=== PATIENT | female | born 1995 | race Caucasian/White ===

== ENCOUNTER 2022-07-01 14:24 | Emergency (ER) | payer OTHER ==
[2022-07-01] MEDS ORDERED: HYDROCODONE/APAP 7.5/325 MG TAB ONE (15:31)
--- NOTE | 2022-07-01 16:57 | RAD REPORT ---
EXAM DESCRIPTION: RAD - Ankle Right 3 View - 07/01/2022 3:53 pm CLINICAL HISTORY: PAIN COMPARISON: No comparisons TECHNIQUE: Right ankle, 3 views. FINDINGS: No fracture, dislocation or periosteal reaction. No joint effusion seen. No joint space na rrowing. Bilateral tissue swelling along the lateral malleolus. IMPRESSION: No acute osseous abnormality of the right ankle.
--- NOTE | 2022-07-01 17:14 | ER ---
Nurse's Notes [facility] Name: Carmen Hinojosa Age: 27 yrs Sex: Female : 1995 Arrival Date: 07/01/2022 Time: 14:24 Bed 17 Private MD: Diagnosis: Sprain of ankle;Sprain of deltoid ligament of right ankle Presentation: 07/01 14:47 Chief complaint: Patient states: Rolled R ankle on Saturday. Still swollen and painful. ll1 Had x-ray at urgent care, no break found. Coronavirus screen: Vaccine status: Patient reports being unvaccinated. Client denies travel out of the [place] in the last 14 days. At this time, the client does not indicate any symptoms associated with coronavirus-19. Ebola Screen: Patient denies travel to an Ebola-affected area in the 21 days before illness onset. Initial Sepsis Screen: Does the patient meet any 2 criteria? No. Patient's initial sepsis screen is negative. Does the patient have a suspected source of infection? Yes: Bone or joint infection. Risk Assessment: Do you want to hurt yourself or someone else? Patient reports no desire to harm self or others. Onset of symptoms was June 29, 2022. 14:47 Method Of Arrival: Wheelchair ll1 14:47 Acuity: MANUEL 4 ll1 Historical: - Allergies: 14:46 Latex, Natural Rubber; ll1 - PMHx: 14:46 None; ll1 - PSHx: 14:46 None; ll1 - Immunization history:: Client reports having NOT received the Covid vaccine. - Social history:: Smoking status: Patient denies any tobacco usage or history of. Vital Signs: 14:47 BP 141 / 99; Pulse 117; Resp 17; Temp 99.6; Pulse Ox 95% ; Weight 105.69 kg; Height 5 ll1 ft. 7 in. ; Pain 4/10; 14:47 Body Mass Index 36.49 (105.69 kg, 170.18 cm) ll1 14:47 Pain Scale: Adult ll1 ED Course: 14:24 Patient arrived in ED. am2 14:26 Elio Zafar MD is Attending Physician. kdr 14:46 Arm band placed on Patient placed in an exam room, on a stretcher. ll1 14:48 Triage completed. ll1 15:19 Jaycee Gregory, RN is Primary Nurse. 3 15:55 Ankle Right 3 View XRAY In Process Unspecified. EDMS 17:04 Crutch training done. 3 Administered Medications: 15:45 Drug: Hydrocodone-Acetaminophen PO (7.5 mg-325 mg) 1 tabs Route: PO; 3 17:04 Follow up: Response: Pain is decreased 3 Outcome: 17:13 Discharge ordered by . [email or web address] Signatures: Dispatcher [employer] EDMS Elio Zafar MD MD kdr Moreno, Amanda am2 Lewis, Lynsay, RN RN 1 Jaycee Gregory, RN RN 3
--- NOTE | 2022-07-01 17:14 | EDPHYS ---
Physician Documentation [facility] Name: Carmen Hinojosa Age: 27 yrs Sex: Female : 1995 Arrival Date: 07/01/2022 Time: 14:24 Bed 17 Private MD: ED Physician Elio Zafar Historical: - Allergies: 07/01 14:46 Latex, Natural Rubber; ll1 - PMHx: 14:46 None; ll1 - PSHx: 14:46 None; ll1 - Immunization history:: Client reports having NOT received the Covid vaccine. - Social history:: Smoking status: Patient denies any tobacco usage or history of. Vital Signs: 14:47 BP 141 / 99; Pulse 117; Resp 17; Temp 99.6; Pulse Ox 95% ; Weight 105.69 kg; Height 5 ll1 ft. 7 in. ; Pain 4/10; 14:47 Body Mass Index 36.49 (105.69 kg, 170.18 cm) ll1 14:47 Pain Scale: Adult ll1 MDM: 17:13 Patient medically screened. kdr 07/01 16:39 Order name: Lj wrap-joint: Right ankle kdr 07/01 16:38 Order name: Crutches; Complete Time: 17:04 kdr 07/01 14:37 Order name: Ankle Right 3 View XRAY; Complete Time: 17:06 kdr Administered Medications: 15:45 Drug: Hydrocodone-Acetaminophen PO (7.5 mg-325 mg) 1 tabs Route: PO; eh3 17:04 Follow up: Response: Pain is decreased eh3 Disposition Summary: 07/01/22 17:13 Discharge Ordered Location: Home kdr Problem: new kdr Symptoms: have improved kdr Condition: Stable kdr Diagnosis - Sprain of ankle kdr - Sprain of deltoid ligament of right ankle kdr Followup: kdr - With: Private Physician - When: 2 - 3 days - Reason: If symptoms return, Further diagnostic work-up, Recheck today's complaints, Continuance of care, Re-evaluation by your physician Forms: - Medication Reconciliation Form kdr - Thank You Letter kdr - Antibiotic Education kdr - Prescription Opioid Use kdr Signatures: Dispatcher [employer] EDMS Elio Zafar MD MD kdr Jose Henderson RN RN 1 Gregory, Jaycee, RN RN eh3
[2022-07-01 18:58] VITALS: BP 141/99; TEMP 99.6; O2SAT 95
== END 2022-07-01 17:30 | disposition home or self-care (01) ==
LOC: ER 14:24
DX: S93.421A Sprain of deltoid ligament of right ankle, initial encounter (principal); Z91.040 Latex allergy status; Z91.048 Other nonmedicinal substance allergy status
CPT/HCPCS: 99284

== ENCOUNTER 2023-07-13 21:02 | Emergency (ER) | payer OTHER ==
--- OUTSIDE RECORDS SUMMARY | 2023-07-13 21:07 | XMS REPORT | Continuity of Care Document ---
Author Name Unknown Address [address] [facility] [address] [place] [address] [facility] [address] [facility] [address] [place] [address] Care Team Providers Care Electrophysiology Tech Name Role Phone Nathanael Berry Attending Clinician Unavailable Payers Payer Name Policy Type Policy Number Effective Date Expirati on Date Source [facility] 6 [id number] 2023 00:00:00 [facility] [employer] 53 [id number] 2022 00:00:00 [facility] Problems Condition Name Condition Details Condition Category Status Onset Date Resolution Date Last Treatment Date Treating Clinician Comments Source [id number] Insulin resistance Problem [facility] [id number] Body mass index [BMI] 35.0-35.9, adult Problem [facility] [id number] Current moderate episode of major depressive disorder without prior episode Problem [facility] [id number] Mixed hyperlipid emia Problem [facility] 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 Problem [facility] [id number] Thyroid nodule Problem [facility] [id number] Attention deficit hyperactiv ity disorder (ADHD), predominan tly inattentiv e type Problem [facility] [id number] Morbid (severe) obesity due to excess calories Problem [facility] [id number] Panic disorder [episodic paroxysmal anxiety] Problem [facility] [id number] Generalize d anxiety disorder Problem [facility] Allergies, Adverse Reactions, Alerts Allergy Name Allergy Type Status Severity Reaction(s) Onset Date Inactive Date Treating Clinician Comments Source vilazodo ne vilazodo ne Active SI [facility] Latex Latex Active Unknown [facility] Social History Social Habit Start Date Stop Date Quantity Comments Source Sex Assigned At [facility] History of Tobacco Use [facility] Smoking Status Start Date Stop Date Source Never Smoker [facility] Medications Ordered Medication Name Filled Medication Name Start Date Stop Date Current Medication? Ordering Clinician Indication Dosage Frequency Signature (SIG) Comments Components Source Vyvanse 40 MG Vyvanse 40 MG 2023-0 3-11 00:00: 00 No 1{capsu le_in_t he_morn ing} QD Vyvanse 40 MG Vyvanse 40 MG Vyvanse 40 MG 4-0 2- 00:00: 00 No 1{capsu le_in_t he_morn ing} QD Vyvanse 40 MG Vyvanse 40 MG Vyvanse 40 MG 4-0 2- 00:00: 00 No 1{capsu le_in_t he_morn ing} QD Vyvanse 40 MG Vyvanse 40 MG Vyvanse 40 MG 4-0 2- 00:00: 00 No 1{capsu le_in_t he_morn ing} QD Vyvanse 40 MG Vyvanse 40 MG Vyvanse 40 MG 4-0 2- 00:00: 00 No 1{capsu le_in_t he_morn ing} QD Vyvanse 40 MG Vyvanse 40 MG Vyvanse 40 MG 4-0 2- 00:00: 00 No 1{capsu le_in_t he_morn ing} QD Vyvanse 40 MG Vyvanse 40 MG Vyvanse 40 MG 4-0 2- 00:00: 00 No 1{capsu le_in_t he_morn ing} QD Vyvanse 40 MG Vyvanse 40 MG Vyvanse 40 MG 0 2 00:00: 00 No 1{capsu le_in_t he_morn ing} QD Vyvanse 40 MG Vyvanse 40 MG Vyvanse 40 MG 0 1- 00:00: 00 No QD Vyvanse 40 MG Vyvanse 40 MG Vyvanse 40 MG 0 1- 00:00: 00 No QD Vyvanse 40 MG Vyvanse 40 MG Vyvanse 40 MG 2022-04 00:00: 00 No 1{capsu le_in_t he_morn ing} QD Vyvanse 40 MG Vyvanse 40 MG Vyvanse 40 MG 2022-04 00:00: 00 No 1{capsu le_in_t he_morn ing} QD Vyvanse 40 MG Vyvanse 40 MG Vyvanse 40 MG 2022-04 00:00: 00 No 1{capsu le_in_t he_morn ing} QD Vyvanse 40 MG Vyvanse 40 MG Vyvanse 40 MG 2022-04 00:00: 00 No 1{capsu le_in_t he_morn ing} QD Vyvanse 40 MG Vyvanse 40 MG Vyvanse 40 MG 2022-04 00:00: 00 No 1{capsu le_in_t he_morn ing} QD Vyvanse 40 MG Vyvanse 40 MG Vyvanse 40 MG 2022-04 00:00: 00 No 1{capsu le_in_t he_morn ing} QD Vyvanse 40 MG Vyvanse 40 MG Vyvanse 40 MG 2022-04 00:00: 00 No 1{capsu le_in_t he_morn ing} QD Vyvanse 40 MG Vyvanse 40 MG Vyvanse 40 MG 2022-04 00:00: 00 No 1{capsu le_in_t he_morn ing} QD Vyvanse 40 MG Vyvanse 40 MG Vyvanse 40 MG 2022-04 00:00: 00 No 1{capsu le_in_t he_morn ing} QD Vyvanse 40 MG Vyvanse 40 MG Vyvanse 40 MG 2022-04 00:00: 00 No 1{capsu le_in_t he_morn ing} QD Vyvanse 40 MG Vyvanse 40 MG Vyvanse 40 MG 2022-04 00:00: 00 No 1{capsu le_in_t he_morn ing} QD Vyvanse 40 MG Vyvanse 40 MG Vyvanse 40 MG 2022-04 00:00: 00 No 1{capsu le_in_t he_morn ing} QD Vyvanse 40 MG Vyvanse 40 MG Vyvanse 40 MG 2022-04 00:00: 00 No 1{capsu le_in_t he_morn ing} QD Vyvanse 40 MG Vyvanse 40 MG Vyvanse 40 MG 2022-04 00:00: 00 No 1{capsu le_in_t he_morn ing} QD Vyvanse 40 MG Vyvanse 40 MG Vyvanse 40 MG 2022-04 00:00: 00 No 1{capsu le_in_t he_morn ing} QD Vyvanse 40 MG Vyvanse 40 MG Vyvanse 40 MG 2022-04 00:00: 00 No 1{capsu le_in_t he_morn ing} QD Vyvanse 40 MG Vyvanse 40 MG Vyvanse 40 MG 2022-04 00:00: 00 No 1{capsu le_in_t he_morn ing} QD Vyvanse 40 MG Vyvanse 40 MG Vyvanse 40 MG 2022-04 00:00: 00 No 1{capsu le_in_t he_morn ing} QD Vyvanse 40 MG Vyvanse 40 MG Vyvanse 40 MG 2022-04 00:00: 00 No 1{capsu le_in_t he_morn ing} QD Vyvanse 40 MG Vyvanse 40 MG Vyvanse 40 MG 2022-04 0 00:00: 00 No 1{capsu le_in_t he_morn ing} QD Vyvanse 40 MG Vyvanse 40 MG Vyvanse 40 MG 2022-04 0 00:00: 00 No 1{capsu le_in_t he_morn ing} QD Vyvanse 40 MG Vyvanse 40 MG Vyvanse 40 MG 2022-04 0 00:00: 00 No 1{capsu le_in_t he_morn ing} QD Vyvanse 40 MG Vyvanse 40 MG Vyvanse 40 MG 2022-04 0 00:00: 00 No 1{capsu le_in_t he_morn ing} QD Vyvanse 40 MG Vyvanse 40 MG Vyvanse 40 MG 2022-04 0 00:00: 00 No 1{capsu le_in_t he_morn ing} QD Vyvanse 40 MG Vyvanse 40 MG Vyvanse 40 MG 2022-04 0 00:00: 00 No 1{capsu le_in_t he_morn ing} QD Vyvanse 40 MG Vyvanse 40 MG Vyvanse 40 MG 2022-04 0 00:00: 00 No 1{capsu le_in_t he_morn ing} QD Vyvanse 40 MG Zofran 4 MG Zofran 4 MG 2022-0 01-09 00:00: 00 No BID Zofran 4 MG Zofran 4 MG Zofran 4 MG 2022-0 01-09 00:00: 00 No BID Zofran 4 MG Zofran 4 MG Zofran 4 MG 2022-0 01-09 00:00: 00 No BID Zofran 4 MG Zofran 4 MG Zofran 4 MG 2022-0 01-09 00:00: 00 No BID Zofran 4 MG Zofran 4 MG Zofran 4 MG 2022-0 01-09 00:00: 00 No BID Zofran 4 MG Zofran 4 MG Zofran 4 MG 2022-0 01-09 00:00: 00 No BID Zofran 4 MG Zofran 4 MG Zofran 4 MG 2023-0 01-09 00:00: 00 No BID Zofran 4 MG Zofran 4 MG Zofran 4 MG 3-0 01-09 00:00: 00 No BID Zofran 4 MG Zofran 4 MG Zofran 4 MG 2023-0 01-09 00:00: 00 No BID Zofran 4 MG Zofran 4 MG Zofran 4 MG 3-0 01-09 00:00: 00 No BID Zofran 4 MG Zofran 4 MG Zofran 4 MG 3-0 01-09 00:00: 00 No BID Zofran 4 MG Zofran 4 MG Zofran 4 MG 3-0 01-09 00:00: 00 No BID Zofran 4 MG Zofran 4 MG Zofran 4 MG 3-0 01-09 00:00: 00 No BID Zofran 4 MG Zofran 4 MG Zofran 4 MG 3-0 01-09 00:00: 00 No BID Zofran 4 MG Zofran 4 MG Zofran 4 MG 3-0 01-09 00:00: 00 No BID Zofran 4 MG Zofran 4 MG Zofran 4 MG 3-0 01-09 00:00: 00 No BID Zofran 4 MG Zofran 4 MG Zofran 4 MG 3-0 01-09 00:00: 00 No BID Zofran 4 MG Zofran 4 MG Zofran 4 MG 3-0 01-09 00:00: 00 No BID Zofran 4 MG Zofran 4 MG Zofran 4 MG 3-0 01-09 00:00: 00 No BID Zofran 4 MG Zofran 4 MG Zofran 4 MG 3-0 01-09 00:00: 00 No BID Zofran 4 MG Zofran 4 MG Zofran 4 MG 3-0 01-09 00:00: 00 No BID Zofran 4 MG Zofran 4 MG Zofran 4 MG 3-0 01-09 00:00: 00 No BID Zofran 4 MG Zofran 4 MG Zofran 4 MG 0 01-09 00:00: 00 No BID Zofran 4 MG Zofran 4 MG Zofran 4 MG 2022-0 01-09 00:00: 00 No BID Zofran 4 MG Zofran 4 MG Zofran 4 MG 2022-0 01-09 00:00: 00 No BID Zofran 4 MG Zofran 4 MG Zofran 4 MG 2022-0 01-09 00:00: 00 No BID Zofran 4 MG Vyvanse 40 MG Vyvanse 40 MG 2022-0 01-07 00:00: 00 No 1{capsu le_in_t he_morn ing} QD Vyvanse 40 MG Vyvanse 40 MG Vyvanse 40 MG 2022-0 01-07 00:00: 00 No 1{capsu le_in_t he_morn ing} QD Vyvanse 40 MG Vyvanse 40 MG Vyvanse 40 MG 2022-0 01-07 00:00: 00 No 1{capsu le_in_t he_morn ing} QD Vyvanse 40 MG Vyvanse 40 MG Vyvanse 40 MG 2022-0 01-07 00:00: 00 No 1{capsu le_in_t he_morn ing} QD Vyvanse 40 MG Vyvanse 40 MG Vyvanse 40 MG 0 01-07 00:00: 00 No 1{capsu le_in_t he_morn ing} QD Vyvanse 40 MG Vyvanse 40 MG Vyvanse 40 MG 2022-0 01-07 00:00: 00 No 1{capsu le_in_t he_morn ing} QD Vyvanse 40 MG Vyvanse 40 MG Vyvanse 40 MG 2022-0 01-07 00:00: 00 No 1{capsu le_in_t he_morn ing} QD Vyvanse 40 MG Vyvanse 40 MG Vyvanse 40 MG 2022-0 01-07 00:00: 00 No 1{capsu le_in_t he_morn ing} QD Vyvanse 40 MG Viibryd 40 MG Viibryd 40 MG No Viibryd 40 MG metroNIDAZO LE 500 MG metroNIDAZO LE 500 MG No 1{table t} BID metroNIDAZ OLE 500 MG LORazepam 1 MG LORazepam 1 MG No 1{table t_at_be dtime_a s_neede d} QD LORazepam 1 MG Toprol XL 25 MG Toprol XL 25 MG No 1{table t} QD Toprol XL 25 MG Ciprofloxac in HCl 500 MG Ciprofloxac in HCl 500 MG No 1{table t} BID Ciprofloxa lisandra HCl 500 MG Levsin 0.125 MG Levsin 0.125 MG No 1{table t_as_ne eded} Levsin 0.125 MG Viibryd 40 MG Viibryd 40 MG No Viibryd 40 MG metroNIDAZO LE 500 MG metroNIDAZO LE 500 MG No 1{table t} BID metroNIDAZ OLE 500 MG LORazepam 1 MG LORazepam 1 MG No 1{table t_at_be dtime_a s_neede d} QD LORazepam 1 MG Toprol XL 25 MG Toprol XL 25 MG No 1{table t} QD Toprol XL 25 MG Ciprofloxac in HCl 500 MG Ciprofloxac in HCl 500 MG No 1{table t} BID Ciprofloxa lisandra HCl 500 MG Levsin 0.125 MG Levsin 0.125 MG No 1{table t_as_ne eded} Levsin 0.125 MG Viibryd 40 MG Viibryd 40 MG No Viibryd 40 MG metroNIDAZO LE 500 MG metroNIDAZO LE 500 MG No 1{table t} BID metroNIDAZ OLE 500 MG LORazepam 1 MG LORazepam 1 MG No 1{table t_at_be dtime_a s_neede d} QD LORazepam 1 MG Toprol XL 25 MG Toprol XL 25 MG No 1{table t} QD Toprol XL 25 MG Ciprofloxac in HCl 500 MG Ciprofloxac in HCl 500 MG No 1{table t} BID Ciprofloxa lisandra HCl 500 MG Levsin 0.125 MG Levsin 0.125 MG No 1{table t_as_ne eded} Levsin 0.125 MG Viibryd 40 MG Viibryd 40 MG No Viibryd 40 MG metroNIDAZO LE 500 MG metroNIDAZO LE 500 MG No 1{table t} BID metroNIDAZ OLE 500 MG Viibryd 40 MG Viibryd 40 MG No Viibryd 40 MG Toprol XL 25 MG Toprol XL 25 MG No 1{table t} QD Toprol XL 25 MG LORazepam 1 MG LORazepam 1 MG No 1{table t_at_be dtime_a s_neede d} QD LORazepam 1 MG Ciprofloxac in HCl 500 MG Ciprofloxac in HCl 500 MG No 1{table t} BID Ciprofloxa lisandra HCl 500 MG Levsin 0.125 MG Levsin 0.125 MG No 1{table t_as_ne eded} Levsin 0.125 MG Viibryd 40 MG Viibryd 40 MG No QD Viibryd 40 MG metroNIDAZO LE 500 MG metroNIDAZO LE 500 MG No 1{table t} BID metroNIDAZ OLE 500 MG Viibryd 40 MG Viibryd 40 MG No Viibryd 40 MG Toprol XL 25 MG Toprol XL 25 MG No 1{table t} QD Toprol XL 25 MG LORazepam 1 MG LORazepam 1 MG No 1{table t_at_be dtime_a s_neede d} QD LORazepam 1 MG Ciprofloxac in HCl 500 MG Ciprofloxac in HCl 500 MG No 1{table t} BID Ciprofloxa lisandra HCl 500 MG Levsin 0.125 MG Levsin 0.125 MG No 1{table t_as_ne eded} Levsin 0.125 MG Viibryd 40 MG Viibryd 40 MG No QD Viibryd 40 MG metroNIDAZO LE 500 MG metroNIDAZO LE 500 MG No 1{table t} BID metroNIDAZ OLE 500 MG Viibryd 40 MG Viibryd 40 MG No Viibryd 40 MG Toprol XL 25 MG Toprol XL 25 MG No 1{table t} QD Toprol XL 25 MG LORazepam 1 MG LORazepam 1 MG No 1{table t_at_be dtime_a s_neede d} QD LORazepam 1 MG Ciprofloxac in HCl 500 MG Ciprofloxac in HCl 500 MG No 1{table t} BID Ciprofloxa lisandra HCl 500 MG Levsin 0.125 MG Levsin 0.125 MG No 1{table t_as_ne eded} Levsin 0.125 MG Viibryd 40 MG Viibryd 40 MG No QD Viibryd 40 MG metroNIDAZO LE 500 MG metroNIDAZO LE 500 MG No 1{table t} BID metroNIDAZ OLE 500 MG Viibryd 40 MG Viibryd 40 MG No Viibryd 40 MG Toprol XL 25 MG Toprol XL 25 MG No 1{table t} QD Toprol XL 25 MG LORazepam 1 MG LORazepam 1 MG No 1{table t_at_be dtime_a s_neede d} QD LORazepam 1 MG LORazepam 1 MG LORazepam 1 MG No 1{table t_at_be dtime_a s_neede d} QD LORazepam 1 MG Ciprofloxac in HCl 500 MG Ciprofloxac in HCl 500 MG No 1{table t} BID Ciprofloxa lisandra HCl 500 MG Levsin 0.125 MG Levsin 0.125 MG No 1{table t_as_ne eded} Levsin 0.125 MG Viibryd 40 MG Viibryd 40 MG No QD Viibryd 40 MG metroNIDAZO LE 500 MG metroNIDAZO LE 500 MG No 1{table t} BID metroNIDAZ OLE 500 MG Toprol XL 25 MG Toprol XL 25 MG No 1{table t} QD Toprol XL 25 MG Viibryd 40 MG Viibryd 40 MG No Viibryd 40 MG Toprol XL 25 MG Toprol XL 25 MG No 1{table t} QD Toprol XL 25 MG LORazepam 1 MG LORazepam 1 MG No 1{table t_at_be dtime_a s_neede d} QD LORazepam 1 MG Ciprofloxac in HCl 500 MG Ciprofloxac in HCl 500 MG No 1{table t} BID Ciprofloxa lisandra HCl 500 MG Levsin 0.125 MG Levsin 0.125 MG No 1{table t_as_ne eded} Levsin 0.125 MG Ciprofloxac in HCl 500 MG Ciprofloxac in HCl 500 MG No 1{table t} BID Ciprofloxa lisandra HCl 500 MG Viibryd 40 MG Viibryd 40 MG No QD Viibryd 40 MG metroNIDAZO LE 500 MG metroNIDAZO LE 500 MG No 1{table t} BID metroNIDAZ OLE 500 MG Viibryd 40 MG Viibryd 40 MG No Viibryd 40 MG Toprol XL 25 MG Toprol XL 25 MG No 1{table t} QD Toprol XL 25 MG LORazepam 1 MG LORazepam 1 MG No 1{table t_at_be dtime_a s_neede d} QD LORazepam 1 MG Ciprofloxac in HCl 500 MG Ciprofloxac in HCl 500 MG No 1{table t} BID Ciprofloxa lisandra HCl 500 MG Levsin 0.125 MG Levsin 0.125 MG No 1{table t_as_ne eded} Levsin 0.125 MG Viibryd 40 MG Viibryd 40 MG No QD Viibryd 40 MG metroNIDAZO LE 500 MG metroNIDAZO LE 500 MG No 1{table t} BID metroNIDAZ OLE 500 MG Levsin 0.125 MG Levsin 0.125 MG No 1{table t_as_ne eded} Levsin 0.125 MG Viibryd 40 MG Viibryd 40 MG No Viibryd 40 MG Toprol XL 25 MG Toprol XL 25 MG No 1{table t} QD Toprol XL 25 MG LORazepam 1 MG LORazepam 1 MG No 1{table t_at_be dtime_a s_neede d} QD LORazepam 1 MG Ciprofloxac in HCl 500 MG Ciprofloxac in HCl 500 MG No 1{table t} BID Ciprofloxa lisandra HCl 500 MG Levsin 0.125 MG Levsin 0.125 MG No 1{table t_as_ne eded} Levsin 0.125 MG Viibryd 40 MG Viibryd 40 MG No QD Viibryd 40 MG metroNIDAZO LE 500 MG metroNIDAZO LE 500 MG No 1{table t} BID metroNIDAZ OLE 500 MG Viibryd 40 MG Viibryd 40 MG No Viibryd 40 MG Viibryd 40 MG Viibryd 40 MG No Viibryd 40 MG Toprol XL 25 MG Toprol XL 25 MG No 1{table t} QD Toprol XL 25 MG LORazepam 1 MG LORazepam 1 MG No 1{table t_at_be dtime_a s_neede d} QD LORazepam 1 MG Ciprofloxac in HCl 500 MG Ciprofloxac in HCl 500 MG No 1{table t} BID Ciprofloxa lisandra HCl 500 MG Levsin 0.125 MG Levsin 0.125 MG No 1{table t_as_ne eded} Levsin 0.125 MG Viibryd 40 MG Viibryd 40 MG No QD Viibryd 40 MG metroNIDAZO LE 500 MG metroNIDAZO LE 500 MG No 1{table t} BID metroNIDAZ OLE 500 MG metroNIDAZO LE 500 MG metroNIDAZO LE 500 MG No 1{table t} BID metroNIDAZ OLE 500 MG Viibryd 40 MG Viibryd 40 MG No Viibryd 40 MG Toprol XL 25 MG Toprol XL 25 MG No 1{table t} QD Toprol XL 25 MG LORazepam 1 MG LORazepam 1 MG No 1{table t_at_be dtime_a s_neede d} QD LORazepam 1 MG Ciprofloxac in HCl 500 MG Ciprofloxac in HCl 500 MG No 1{table t} BID Ciprofloxa lisandra HCl 500 MG Levsin 0.125 MG Levsin 0.125 MG No 1{table t_as_ne eded} Levsin 0.125 MG Viibryd 40 MG Viibryd 40 MG No QD Viibryd 40 MG metroNIDAZO LE 500 MG metroNIDAZO LE 500 MG No 1{table t} BID metroNIDAZ OLE 500 MG Viibryd 40 MG Viibryd 40 MG No Viibryd 40 MG Toprol XL 25 MG Toprol XL 25 MG No 1{table t} QD Toprol XL 25 MG LORazepam 1 MG LORazepam 1 MG No 1{table t_at_be dtime_a s_neede d} QD LORazepam 1 MG Ciprofloxac in HCl 500 MG Ciprofloxac in HCl 500 MG No 1{table t} BID Ciprofloxa lisandra HCl 500 MG Levsin 0.125 MG Levsin 0.125 MG No 1{table t_as_ne eded} Levsin 0.125 MG Viibryd 40 MG Viibryd 40 MG No QD Viibryd 40 MG metroNIDAZO LE 500 MG metroNIDAZO LE 500 MG No 1{table t} BID metroNIDAZ OLE 500 MG Vyvanse 40 MG Vyvanse 40 MG No 1{capsu le_in_t he_morn ing} QD Vyvanse 40 MG Levsin 0.125 MG Levsin 0.125 MG No 1{table t_as_ne eded} Levsin 0.125 MG LORazepam 1 MG LORazepam 1 MG No 1{table t_at_be dtime_a s_neede d} QD LORazepam 1 MG Viibryd 40 MG Viibryd 40 MG No QD Viibryd 40 MG Toprol XL 25 MG Toprol XL 25 MG No 1{table t} QD Toprol XL 25 MG Vyvanse 40 MG Vyvanse 40 MG No 1{capsu le_in_t he_morn ing} QD Vyvanse 40 MG Levsin 0.125 MG Levsin 0.125 MG No 1{table t_as_ne eded} Levsin 0.125 MG LORazepam 1 MG LORazepam 1 MG No 1{table t_at_be dtime_a s_neede d} QD LORazepam 1 MG Viibryd 40 MG Viibryd 40 MG No QD Viibryd 40 MG Toprol XL 25 MG Toprol XL 25 MG No 1{table t} QD Toprol XL 25 MG Vyvanse 40 MG Vyvanse 40 MG No 1{capsu le_in_t he_morn ing} QD Vyvanse 40 MG Levsin 0.125 MG Levsin 0.125 MG No 1{table t_as_ne eded} Levsin 0.125 MG LORazepam 1 MG LORazepam 1 MG No 1{table t_at_be dtime_a s_neede d} QD LORazepam 1 MG Viibryd 40 MG Viibryd 40 MG No QD Viibryd 40 MG Toprol XL 25 MG Toprol XL 25 MG No 1{table t} QD Toprol XL 25 MG Vyvanse 40 MG Vyvanse 40 MG No 1{capsu le_in_t he_morn ing} QD Vyvanse 40 MG Levsin 0.125 MG Levsin 0.125 MG No 1{table t_as_ne eded} Levsin 0.125 MG LORazepam 1 MG LORazepam 1 MG No 1{table t_at_be dtime_a s_neede d} QD LORazepam 1 MG Viibryd 40 MG Viibryd 40 MG No QD Viibryd 40 MG Toprol XL 25 MG Toprol XL 25 MG No 1{table t} QD Toprol XL 25 MG Vyvanse 40 MG Vyvanse 40 MG No 1{capsu le_in_t he_morn ing} QD Vyvanse 40 MG Levsin 0.125 MG Levsin 0.125 MG No 1{table t_as_ne eded} Levsin 0.125 MG LORazepam 1 MG LORazepam 1 MG No 1{table t_at_be dtime_a s_neede d} QD LORazepam 1 MG Viibryd 40 MG Viibryd 40 MG No QD Viibryd 40 MG Toprol XL 25 MG Toprol XL 25 MG No 1{table t} QD Toprol XL 25 MG Vyvanse 40 MG Vyvanse 40 MG No 1{capsu le_in_t he_morn ing} QD Vyvanse 40 MG Levsin 0.125 MG Levsin 0.125 MG No 1{table t_as_ne eded} Levsin 0.125 MG LORazepam 1 MG LORazepam 1 MG No 1{table t_at_be dtime_a s_neede d} QD LORazepam 1 MG Viibryd 40 MG Viibryd 40 MG No QD Viibryd 40 MG Toprol XL 25 MG Toprol XL 25 MG No 1{table t} QD Toprol XL 25 MG LORazepam 1 MG LORazepam 1 MG No 1{table t_at_be dtime_a s_neede d} QD LORazepam 1 MG Vyvanse 40 MG Vyvanse 40 MG No 1{capsu le_in_t he_morn ing} QD Vyvanse 40 MG Levsin 0.125 MG Levsin 0.125 MG No 1{table t_as_ne eded} Levsin 0.125 MG LORazepam 1 MG LORazepam 1 MG No 1{table t_at_be dtime_a s_neede d} QD LORazepam 1 MG Viibryd 40 MG Viibryd 40 MG No QD Viibryd 40 MG Toprol XL 25 MG Toprol XL 25 MG No 1{table t} QD Toprol XL 25 MG Toprol XL 25 MG Toprol XL 25 MG No 1{table t} QD Toprol XL 25 MG Vyvanse 40 MG Vyvanse 40 MG No 1{capsu le_in_t he_morn ing} QD Vyvanse 40 MG Levsin 0.125 MG Levsin 0.125 MG No 1{table t_as_ne eded} Levsin 0.125 MG Viibryd 40 MG Viibryd 40 MG No QD Viibryd 40 MG LORazepam 1 MG LORazepam 1 MG No 1{table t_at_be dtime_a s_neede d} QD LORazepam 1 MG Toprol XL 25 MG Toprol XL 25 MG No 1{table t} QD Toprol XL 25 MG Ciprofloxac in HCl 500 MG Ciprofloxac in HCl 500 MG No 1{table t} BID Ciprofloxa lisandra HCl 500 MG Levsin 0.125 MG Levsin 0.125 MG No 1{table t_as_ne eded} Levsin 0.125 MG Viibryd 40 MG Viibryd 40 MG No Viibryd 40 MG metroNIDAZO LE 500 MG metroNIDAZO LE 500 MG No 1{table t} BID metroNIDAZ OLE 500 MG LORazepam 1 MG LORazepam 1 MG No 1{table t_at_be dtime_a s_neede d} QD LORazepam 1 MG Toprol XL 25 MG Toprol XL 25 MG No 1{table t} QD Toprol XL 25 MG Ciprofloxac in HCl 500 MG Ciprofloxac in HCl 500 MG No 1{table t} BID Ciprofloxa lisandra HCl 500 MG Levsin 0.125 MG Levsin 0.125 MG No 1{table t_as_ne eded} Levsin 0.125 MG Viibryd 40 MG Viibryd 40 MG No Viibryd 40 MG metroNIDAZO LE 500 MG metroNIDAZO LE 500 MG No 1{table t} BID metroNIDAZ OLE 500 MG LORazepam 1 MG LORazepam 1 MG No 1{table t_at_be dtime_a s_neede d} QD LORazepam 1 MG Toprol XL 25 MG Toprol XL 25 MG No 1{table t} QD Toprol XL 25 MG Ciprofloxac in HCl 500 MG Ciprofloxac in HCl 500 MG No 1{table t} BID Ciprofloxa lisandra HCl 500 MG Levsin 0.125 MG Levsin 0.125 MG No 1{table t_as_ne eded} Levsin 0.125 MG Viibryd 40 MG Viibryd 40 MG No Viibryd 40 MG metroNIDAZO LE 500 MG metroNIDAZO LE 500 MG No 1{table t} BID metroNIDAZ OLE 500 MG LORazepam 1 MG LORazepam 1 MG No 1{table t_at_be dtime_a s_neede d} QD LORazepam 1 MG Toprol XL 25 MG Toprol XL 25 MG No 1{table t} QD Toprol XL 25 MG Ciprofloxac in HCl 500 MG Ciprofloxac in HCl 500 MG No 1{table t} BID Ciprofloxa lisandra HCl 500 MG Levsin 0.125 MG Levsin 0.125 MG No 1{table t_as_ne eded} Levsin 0.125 MG Vital Signs Vital Name Observation Time Observation Value Comments S ource height 2023-05-09 08:00:00 67.5 [in_i] Comm on [facility] weight 2023-05-09 08:00:00 230 [lb_av] Comm on [facility] 2023-05-09 08:00:00 35.49 kg/m2 Comm on [facility] height 2023-03-06 09:10:00 67.5 [in_i] Comm on [facility] weight 2023-03-06 09:10:00 230 [lb_av] Comm on [facility] 2023-03-06 09:10:00 35.49 kg/m2 Comm on [facility] blood pressure systolic 2023-03-06 09:10:00 132 mm[Hg] Common [facility] blood pressure diastolic 2023-03-06 09:10:00 76 mm[Hg] [facility] height 2023-01-09 15:00:00 67.5 [in_i] Comm on [facility] weight 2023-01-09 15:00:00 233 [lb_av] Comm on [facility] bmi 2023-01-09 15:00:00 35.95 kg/m2 Comm on [facility] height 2023-01-07 11:40:00 67.5 [in_i] Comm on [facility] weight 2023-01-07 11:40:00 233 [lb_av] Comm on [facility] bmi 2023-01-07 11:40:00 35.95 kg/m2 Comm on [facility] height 2022-11-07 11:50:00 67.5 [in_i] Comm on [facility] weight 2022-11-07 11:50:00 233 [lb_av] Comm on [facility] bmi 2022-11-07 11:50:00 35.95 kg/m2 Comm on [facility] blood pressure systolic 2022-11-07 11:50:00 125 mm[Hg] [facility] pressure diastolic 2022-11-07 11:50:00 88 mm[Hg] Common [facility] height 2022-09-06 08:10:00 67.5 [in_i] Comm on [facility] weight 2022-09-06 08:10:00 232 [lb_av] Comm on [facility] temperature 2022-09-06 08:10:00 96.4 [degF] Com [facility] bmi 2022-09-06 08:10:00 35.8 kg/m2 Commo n [facility] oximetry 2022-09-06 08:10:00 99 % Commo n [facility] respiratory rate 2022-09-06 08:10:00 16 /min [facility] blood pressure systolic 2022-09-06 08:10:00 129 mm[Hg] [facility] blood pressure diastolic 2022-09-06 08:10:00 85 mm[Hg] [facility] height 2022-07-27 08:30:00 67.5 [in_i] Comm on [facility] weight 2022-07-27 08:30:00 231 [lb_av] Comm on [facility] temperature 2022-07-27 08:30:00 97.1 [degF] Com [facility] bmi 2022-07-27 08:30:00 35.64 kg/m2 Comm on [facility] oximetry 2022-07-27 08:30:00 97 % Commo n [facility] respiratory rate 2022-07-27 08:30:00 16 /min [facility] blood pressure systolic 2022-07-27 08:30:00 138 mm[Hg] [facility] blood pressure diastolic 2022-07-27 08:30:00 86 mm[Hg] [facility] height 2022-06-27 15:30:00 67.5 [in_i] Comm on [facility] weight 2022-06-27 15:30:00 233 [lb_av] Comm on [facility] temperature 2022-06-27 15:30:00 97.9 [degF] Com mon [facility] bmi 2022-06-27 15:30:00 35.95 kg/m2 Comm on [facility] oximetry 2022-06-27 15:30:00 93 % Commo n [facility] respiratory rate 2022-06-27 15:30:00 16 /min [facility] blood pressure systolic 2022-06-27 15:30:00 136 mm[Hg] [facility] blood pressure diastolic 2022-06-27 15:30:00 82 mm[Hg] [facility] Encounters Start Date/Time End Date/Time Encounter Type Admission Type Attending [facility] Care Department Encounter ID Source 2023-05-29 09:16:[id number] [facility] 2023-05-08 14:19:01 [facility] [id number] [facility] 2023-05-07 09:27:01 [facility] [id number] [facility] 2023-03-05 11:59:00 [facility] [id number] [facility] 2023-02-28 08:31:01 Outpatient Berry, Nathanael [facility] [id number] [facility] 2023-01-09 15:03:00 Outpatient Berry, Nathanael [facility] [id number] [facility] 2022-11-07 11:25:00 Outpatient Berry, Nathanael STLMLC STLMLC [id number] [facility] 2022-08-31 10:02:02 Outpatient Berry, Nathanael STLMLC STLMLC [id number] [facility] 2022-07-25 08:46:01 Outpatient Berry, Nathanael STLMLC STLMLC [id number] [facility] 2022-06-27 15:25:02 Outpatient Berry, Nathanael STLMLC STLMLC [id number] [facility] 2023-06-24 00:00:00 2023-06-24 00:00:00 (TEL) STLMLC STLMLC [id number] [facility] 2023-06-05 00:00:00 2023-06-05 00:00:00 (TEL) STLMLC STLMLC [id number] [facility] 2023-06-03 00:00:00 2023-06-03 00:00:00 (TEL) STLMLC STLMLC [id number] [facility] 2023-05-29 00:00:00 2023-05-29 00:00:00 (TEL) STLMLC STLMLC [id number] [facility] 2023-05-09 00:00:00 2023-05-09 00:00:00 OFFICE VISIT ESTAB PT LEVEL 4 STLMLC STLMLC [id number] [facility] 2023-04-18 00:00:00 2023-04-18 00:00:00 (WEB) STLMLC STLMLC [id number] [facility] 2023-04-16 00:00:00 2023-04-16 00:00:00 (WEB) STLMLC STLMLC [id number] [facility] 2023-04-02 00:00:00 2023-04-02 00:00:00 (WEB) STLMLC STLMLC [id number] [facility] 2023-03-06 00:00:00 2023-03-06 00:00:00 OFFICE VISIT ESTAB PT LEVEL 4 STLMLC STLMLC [id number] [facility] 2023-02-01 00:00:00 2023-02-01 00:00:00 (WEB) STLMLC STLMLC [id number] [facility] 2023-01-09 00:00:00 2023-01-09 00:00:00 (WEB) STLMLC STLMLC [id number] [facility] 2023-01-09 00:00:00 2023-01-09 00:00:00 OFFICE VISIT ESTAB PT LEVEL 3 STLMLC STLMLC [id number] [facility] 2023-01-09 00:00:00 2023-01-09 00:00:00 (WEB) STLMLC STLMLC [id number] [facility] 2023-01-07 00:00:00 2023-01-07 00:00:00 OFFICE VISIT ESTAB PT LEVEL 3 STLMLC STLMLC [id number] [facility] 2022-11-07 00:00:00 2022-11-07 00:00:00 OFFICE VISIT ESTAB PT LEVEL 4 STLMLC STLMLC [id number] [facility] 2022-10-08 00:00:00 2022-10-08 00:00:00 (WEB) STLMLC STLMLC [id number] [facility] 2022-10-05 00:00:00 2022-10-05 00:00:00 (WEB) STLMLC STLMLC [id number] [facility] 2022-09-06 00:00:00 2022-09-06 00:00:00 OFFICE VISIT ESTAB PT LEVEL 4 STLMLC STLMLC [id number] [facility] 2022-09-03 00:00:00 2022-09-03 00:00:00 (WEB) STLMLC STLMLC [id number] [facility] 2022-08-31 00:00:00 2022-08-31 00:00:00 (TEL) STLMLC STLMLC [id number] [facility] 2022-08-09 00:00:00 2022-08-09 00:00:00 (WEB) STLMLC STLMLC [id number] [facility] 2022-07-27 00:00:00 2022-07-27 00:00:00 PREV VISIT EST AGE 18-39 STLMLC STLMLC [id number] [facility] 2022-07-05 00:00:00 2022-07-05 00:00:00 (TEL) STLMLC STLMLC [id number] [facility] 2022-07-04 00:00:00 2022-07-04 00:00:00 (TEL) STLMLC STLMLC [id number] [facility] 2022-06-27 00:00:00 2022-06-27 00:00:00 OFFICE VISIT NEW PT LEVEL 4 STLMLC STLMLC [id number] [facility] 2022-06-27 00:00:00 2022-06-27 00:00:00 (TEL) STLMLC STLMLC [id number] [facility]
[2023-07-13] MEDS ORDERED: ACETAMINOPHEN 325 MG TABLET ONE (21:43)
--- NOTE | 2023-07-13 22:07 | RAD REPORT ---
EXAM DESCRIPTION: Chema Single View07/13/2023 9:47 pm CLINICAL HISTORY: cough COMPARISON: none FINDINGS: The lungs appear clear of acute infiltrate. The heart is normal size IMPRESSION: No acute abnormalities displayed
[2023-07-13] MEDS ORDERED: NA CHLORIDE 0.9% 1,000 ML ONE (22:15)
[2023-07-13 22:18] LABS: Specific Gravity 1.016 (1.005-1.030); Urine Bilirubin NEGATIVE (Negative); Urine Blood Negative (Negative); Urine Clarity Clear (Clear); Urine Color Colorless (Yellow); Urine Glucose NEGATIVE (Negative); Urine Ketones NEGATIVE (Negative); Urine Microscopic Reflex YN NO UMIC; Urine Nitrite NEGATIVE (Negative); Urine Protein NEGATIVE (Negative); Urine Urobilinogen Normal (Normal)
[2023-07-13 22:21] LABS: Absolute Basophils 0.1 K/uL (0-0.5); Absolute Eosinophils 0.4 K/uL (0-0.5); Absolute Lymphocytes (CBC) 3.3 K/uL (0.7-4.9); Absolute Monocytes 0.8 K/uL (0.1-1.3); Absolute Neutrophil 6.1 K/uL (1.8-8.0); Hematocrit 34.9 % (36.0-45.0); Hemoglobin 12.2 g/dL (12.0-15.0); Lymphocytes % 30.7 % (15.3-44.8); MCH 28.5 pg (27.0-35.0); MCHC 34.9 g/dL (32.0-36.0); MCV 81.6 fL (80-100); MPV 7.5 fL (7.6-11.3); Monocytes % 7.8 % (3.3-12.3); Neutrophils % 56.5 % (41.7-73.7); Nucleated RBC Absolute Count 0.2 (0-0); Nucleated Red Blood Cells % 1.6 % (0-0); Platelets 347 thou/uL (152-406); RBC Red Blood Cell Count 4.27 M/uL (3.86-4.86); Red Cell Distribution Width 12.4 % (12.1-15.2)
[2023-07-13 22:29] LABS: PT Prothrombin Time 11.8 SECONDS (9.5-12.5); Protime INR 1.07
[2023-07-13 22:30] LABS: Barbiturates NEGATIVE (NEGATIVE); Benzodiazepines NEGATIVE (NEGATIVE); Cocaine NEGATIVE (NEGATIVE); METHAMPHETAM POSITIVE (NEGATIVE); Methadone NEGATIVE (NEGATIVE); Opiates NEGATIVE (NEGATIVE); Phencyclidine NEGATIVE (NEGATIVE); THC Cannibis NEGATIVE (NEGATIVE)
[2023-07-13] MEDS ORDERED: ONDANSETRON 4 MG/2 ML VIAL ONE (22:34)
[2023-07-13] MEDS ORDERED: LORazepam 2 MG/ML VIAL ONE (22:35)
[2023-07-13] MEDS ORDERED: KETOROLAC 30 MG/ML INJ ONE (22:35)
[2023-07-13 22:37] LABS: ALT/SGPT 29 U/L (13-56); AST/SGOT 14 U/L (15-37); Albumin 3.7 g/dL (3.4-5.0); Alkaline Phosphatase 76 U/L (45-117); Anion Gap 9.5 mEq/L (5.0-15.0); BUN Blood Urea Nitrogen 14 mg/dL (7-18); Bicarbonate 26 mEq/L (21-32); Bilirubin Direct 0.1 mg/dL (0-0.2); Bilirubin Indirect, Calculated 0.5 mg/dL (0.2-0.8); Bilirubin Total 0.6 mg/dL (0.2-1.0); Globulin 3.7 g/dL (2.3-3.5); Glomerular Filtration Rate 80 ml/min (=/>90); Glucose Level 98 mg/dL (74-106); Magnesium 1.9 mg/dL (1.6-2.4); NT PRO-BNP 15 pg/mL (<125); Potassium 3.5 mEq/L (3.5-5.1); Protein, Total 7.4 g/dL (6.4-8.2); Sodium Level 137 mEq/L (136-145)
[2023-07-13 22:41] LABS: Troponin High Sensitivity < 3.0 pg/mL (<58.9)
[2023-07-13] MEDS ORDERED: METOPROLOL XL 50 MG TAB PO ONE (23:50)
--- NOTE | 2023-07-14 00:10 | ER ---
Nurse's Notes [facility] Name: Carmen Hinojosa Age: 28 yrs Sex: Female : 1995 Arrival Date: 07/13/2023 Time: 21:02 Bed 18 Private MD: Nathanael Berry Diagnosis: Essential (primary) hypertension;Chest pain, unspecified;Anxiety disorder, unspecified;Abnormal electrocardiogram [ECG] [EKG]-prolonged QT 376/482 Presentation: 07/12 21:43 Chief complaint: Patient states: I have been having chest pressure for the past few jb4 days. I am dizzy, have a headache, and feel nauseous. About 10 minutes ago the pain started to radiate to my back. Coronavirus screen: At this time, the client does not indicate any symptoms associated with coronavirus-19. Ebola Screen: No symptoms or risks identified at this time. Initial Sepsis Screen: Does the patient meet any 2 criteria? HR > 90 bpm. Does the patient have a suspected source of infection? No. Patient's initial sepsis screen is negative. Risk Assessment: Do you want to hurt yourself or someone else? Patient reports no desire to harm self or others. Onset of symptoms was July 13, 2023. Transition of care: patient was not received from another setting of care. 21:43 Method Of Arrival: Ambulatory jb4 21:43 Acuity: MANUEL 2 jb4 Triage Assessment: 21:46 Headache History: Denies prior headaches. General: Appears in no apparent distress. jb4 uncomfortable, Behavior is cooperative, anxious, crying. Pain: Complains of pain in chest Pain currently is 4 out of 10 on a pain scale. Quality of pain is described as pressure, Pain began 2-3 days ago. Is intermittent, Also complains of nausea. EENT: No signs and/or symptoms were reported regarding the EENT system. Neuro: Level of Consciousness is awake, alert, obeys commands, Oriented to person, place, time, situation. Cardiovascular: Patient's skin is warm and dry. Respiratory: Airway is patent Respiratory effort is even, unlabored, Respiratory pattern is regular, symmetrical. GI: Reports nausea. : No signs and/or symptoms were reported regarding the genitourinary system. Derm: Skin is intact, Skin is pink, warm \T\ dry. Musculoskeletal: Circulation, motion, and sensation intact. Range of motion: intact in all extremities. 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 - Social history:: Smoking status: Patient denies any tobacco usage or history of. - Family history:: not pertinent. Screenin:53 [facility] ED Fall Risk Assessment (Adult) History of falling in the last 3 months, rv including since admission No falls in past 3 months (0 pts) Score/Fall Risk Level 0 - 2 = Low Risk Oriented to surroundings, Maintained a safe environment, Educated pt \T\ family on fall prevention, incl call for assistance when getting out of bed, Assessed \T\ reinforced patient's understanding of fall precautions. Abuse screen: Denies threats or abuse. Denies injuries from another. Nutritional screening: No deficits noted. Tuberculosis screening: No symptoms or risk factors identified. Assessment: 21:30 General: Appears in no apparent distress. uncomfortable, well groomed, well developed, pf1 Behavior is calm, cooperative, appropriate for age, quiet. 21:30 Pain: Complains of pain in chest and headache Pain currently is 8 out of 10 on a pain pf1 scale. Neuro: Level of Consciousness is awake, alert, obeys commands, Oriented to person, place, time, situation, Reports headache. Cardiovascular: Capillary refill < 3 seconds Patient's skin is warm and dry. Chest pain quality is pressure. Respiratory: No deficits noted. Airway is patent Respiratory effort is even, unlabored, Respiratory pattern is regular, symmetrical, Breath sounds are clear bilaterally. GI: Reports nausea. : No deficits noted. No signs and/or symptoms were reported regarding the genitourinary system. EENT: No deficits noted. No signs and/or symptoms were reported regarding the EENT system. Derm: No deficits noted. No signs and/or symptoms reported regarding the dermatologic system. 22:53 General: Appears comfortable, Behavior is calm, cooperative. Pain: Complains of pain in rv chest. Neuro: Level of Consciousness is awake, alert, obeys commands, Oriented to person, place, time, situation. Cardiovascular: Capillary refill < 3 seconds Patient's skin is warm and dry. Rhythm is regular. Respiratory: Airway is patent Respiratory effort is even, unlabored. GI: No signs and/or symptoms were reported involving the gastrointestinal system. : No signs and/or symptoms were reported regarding the genitourinary system. Derm: Skin is intact. 23:30 Reassessment: Patient appears in no apparent distress at this time. Patient and/or pf1 family updated on plan of care and expected duration. Pain level reassessed. Patient is alert, oriented x 3, equal unlabored respirations, skin warm/dry/pink. Patient states symptoms have improved. 07/13 00:30 Reassessment: Patient appears in no apparent distress at this time. Patient and/or pf1 family updated on plan of care and expected duration. Pain level reassessed. Patient is alert, oriented x 3, equal unlabored respirations, skin warm/dry/pink. Patient states feeling better. Patient states symptoms have improved. Vital Signs: 07/12 21:30 BP 144 / 91; Pulse 101; Resp 16; Pulse Ox 97% on R/A; pf1 21:43 BP 144 / 91; Pulse 99; Resp 21; Temp 98.7(O); Pulse Ox 100% on R/A; Weight 104.33 kg jb4 (R); Height 5 ft. 7 in. (R); Pain 4/10; 22:30 BP 144 / 98; Pulse 94; Resp 16; Pulse Ox 100% on R/A; pf1 23:02 BP 144 / 98; Pulse 94; Resp 17; Pulse Ox 100% on R/A; rv 07/13 00:30 BP 120 / 78; Pulse 90; Resp 19; Temp 98; Pulse Ox 100% on R/A; Pain 2/10; pf1 07/12 21:43 Body Mass Index 36.02 (104.33 kg, 170.18 cm) jb4 21:43 Pain Scale: Adult jb4 07/13 00:30 Pain Scale: Adult pf1 [place] Coma Score: 07/12 22:53 Eye Response: spontaneous(4). Motor Response: obeys commands(6). Verbal Response: rv oriented(5). Total: 15. ED Course: 21:07 Patient arrived in ED. gm2 21:08 Nathanael Berry DO is Private Physician. gm2 21:09 Jon Sun MD is Attending Physician. [facility] 21:30 Urine collected: EKG done, by ED staff, reviewed by Jon Sun MD. pf1 21:40 Initial lab(s) drawn, by me, sent to lab. Inserted saline lock: 22 gauge in left pf1 antecubital area, using aseptic technique. Blood collected. 21:46 Triage completed. jb4 21:46 Arm band placed on right wrist. jb4 21:49 XRAY Chest (1 view) In Process Unspecified. EDMS 21:54 Tamiko Frank, [place] is Primary Nurse. pf1 22:53 Patient has correct armband on for positive identification. Client placed on continuous rv cardiac and pulse oximetry monitoring. NIBP monitoring applied. media monitor on. 22:53 No provider procedures requiring assistance completed. rv 23:07 CT Aorta for Dissection In Process Unspecified. EDMS 23:10 CT Head Brain wo Cont In Process Unspecified. EDMS 03 00:09 Nathanael Berry DO is Referral Physician. [facility] 00:09 Henrry James MD is Referral Physician. [facility] 00:35 Provided Education on: prescriptions. pf1 01:07 IV discontinued, intact, bleeding controlled, No redness/swelling at site. Pressure pf1 dressing applied. Administered Medications: 07/12 21:50 Drug: Acetaminophen PO 650 mg PO once Route: PO; pf1 22:50 Follow up: Response: No adverse reaction; Marked relief of symptoms; Pain is decreased pf1 22:30 Drug: NS 0.9% IV 1000 ml IV at 1 bolus Per protocol; 1000 mL bolus Route: IV; Rate: 1 pf1 bolus; Site: left antecubital; 23:30 Follow up: Response: No adverse reaction; Marked relief of symptoms; IV Status: pf1 Completed infusion; IV Intake: 1000ml 22:40 Drug: Ketorolac IVP 30 mg IVP once Route: IVP; Site: left antecubital; pf1 23:40 Follow up: Response: No adverse reaction; Marked relief of symptoms; Pain is decreased pf1 22:40 Drug: Ondansetron IVP 4 mg IVP once; over 2 minutes Route: IVP; Site: left antecubital; pf1 23:40 Follow up: Response: No adverse reaction; Marked relief of symptoms; Pain is decreased pf1 22:40 Drug: Ativan IVP 1 mg IVP once Route: IVP; Site: left antecubital; pf1 23:40 Follow up: Response: No adverse reaction; Marked relief of symptoms; RASS: Alert and pf1 Calm (0) 23:56 Drug: ToPROL XL PO 25 mg PO once Route: PO; pf1 07/13 00:50 Follow up: Response: No adverse reaction; Marked relief of symptoms; Blood pressure is pf1 lowered Medication: 07/12 22:53 VIS not applicable for this client. rv Intake: 23:30 IV: 1000ml; Total: 1000ml. pf1 Outcome: 00:35 Patient left the ED. pf1 07/13 00:09 Discharge ordered by . edwige 00:35 Discharged to home ambulatory, pf1 00:35 Condition: improved pf1 00:35 Discharge instructions given to patient, Instructed on discharge instructions, follow up and referral plans. Demonstrated understanding of instructions, follow-up care, medications, Prescriptions given X 2, Signatures: Dispatcher [employer] EDNV Jon Sun MD MD cha Bryson, James, RN RN jb4 Isrrael Cunningham RN RN rv Finley, Pamala, RN RN pf1 Ivy Dick 2 Corrections: (The following items were deleted from the chart) 07/12 21:47 21:46 Allergies: ahesive; josie galindo 07/13 01:11 01:10 Patient left the ED. pf1 pf1
--- NOTE | 2023-07-14 00:10 | EDPHYS ---
Physician Documentation [facility] Name: Carmen Hinojosa Age: 28 yrs Sex: Female : 1995 Arrival Date: 07/13/2023 Time: 21:02 Bed 18 Private MD: Jamal [facility] ED Physician Jon Sun HPI: 07/12 22:23 This 28 yrs old Female presents to ER via Ambulatory with complaints of High edwige Blood Pressure, Headache, Dizziness, Nausea, Chest Pain. 22:23 The patient has elevated blood pressure and discovered this at home, with a home edwige device. Onset: The symptoms/episode began/occurred today. Modifying factors: The symptoms are aggravated by activity, The symptoms are alleviated by remaining still. Associated signs and symptoms: Pertinent positives: chest pain, dizziness, headache, weakness. Severity of symptoms: At its worst the blood pressure was mild, in the emergency department the blood pressure is unchanged. The patient has experienced similar episodes in the past, a few times. 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 - Social history:: Smoking status: Patient denies any tobacco usage or history of. - Family history:: not pertinent. ROS: 22:23 Constitutional: Negative for fever, chills, and weight loss, Eyes: Negative for injury, edwige pain, redness, and discharge, ENT: Negative for injury, pain, and discharge, Neck: Negative for injury, pain, and swelling, Cardiovascular: Negative for chest pain, palpitations, and edema, Respiratory: Negative for shortness of breath, cough, wheezing, and pleuritic chest pain, Abdomen/GI: Negative for abdominal pain, nausea, vomiting, diarrhea, and constipation, Back: Negative for injury and pain, : Negative for injury, bleeding, discharge, and swelling, MS/Extremity: Negative for injury and deformity, Skin: Negative for injury, rash, and discoloration, Psych: Negative for depression, anxiety, suicide ideation, homicidal ideation, and hallucinations, Allergy/Immunology: Negative for hives, rash, and allergies, Endocrine: Negative for neck swelling, polydipsia, polyuria, polyphagia, and marked weight changes, Hematologic/Lymphatic: Negative for swollen nodes, abnormal bleeding, and unusual bruising, 22:23 Cardiovascular: Positive for chest pain, of the chest, 22:23 Neuro: Positive for headache, 22:23 Psych: Positive for anxiety, Exam: 22:23 Constitutional: This is a well developed, well nourished patient who is awake, alert, edwige and in no acute distress. Head/Face: Normocephalic, atraumatic. Eyes: Pupils equal round and reactive to light, extra-ocular motions intact. Lids and lashes normal. Conjunctiva and sclera are non-icteric and not injected. Cornea within normal limits. Periorbital areas with no swelling, redness, or edema. ENT: Nares patent. No nasal discharge, no septal abnormalities noted. Tympanic membranes are normal and external auditory canals are clear. Oropharynx with no redness, swelling, or masses, exudates, or evidence of obstruction, uvula midline. Mucous membranes moist. Neck: Trachea midline, no thyromegaly or masses palpated, and no cervical lymphadenopathy. Supple, full range of motion without nuchal rigidity, or vertebral point tenderness. No Meningismus. Chest/axilla: Normal chest wall appearance and motion. Nontender with no deformity. No lesions are appreciated. Cardiovascular: Regular rate and rhythm with a normal S1 and S2. No gallops, murmurs, or rubs. Normal PMI, no JVD. No pulse deficits. Respiratory: Lungs have equal breath sounds bilaterally, clear to auscultation and percussion. No rales, rhonchi or wheezes noted. No increased work of breathing, no retractions or nasal flaring. Abdomen/GI: Soft, non-tender, with normal bowel sounds. No distension or tympany. No guarding or rebound. No evidence of tenderness throughout. Back: No spinal tenderness. No costovertebral tenderness. Full range of motion. Skin: Warm, dry with normal turgor. Normal color with no rashes, no lesions, and no evidence of cellulitis. MS/ Extremity: Pulses equal, no cyanosis. Neurovascular intact. Full, normal range of motion. Neuro: Awake and alert, GCS 15, oriented to person, place, time, and situation. Cranial nerves II-XII grossly intact. Motor strength 5/5 in all extremities. Sensory grossly intact. Cerebellar exam normal. Normal gait. Psych: Awake, alert, with orientation to person, place and time. Behavior, mood, and affect are within normal limits. 22:23 Musculoskeletal/extremity: DVT Exam: No signs of deep vein thrombosis. no pain, no swelling, no tenderness, negative Homans' sign noted on exam, no appreciated bluish discoloration, no erythema, no increased warmth, 23:43 ECG was reviewed by the Attending Physician. edwige Vital Signs: 21:30 BP 144 / 91; Pulse 101; Resp 16; Pulse Ox 97% on R/A; pf1 21:43 BP 144 / 91; Pulse 99; Resp 21; Temp 98.7(O); Pulse Ox 100% on R/A; Weight 104.33 kg jb4 (R); Height 5 ft. 7 in. (R); Pain 4/10; 22:30 BP 144 / 98; Pulse 94; Resp 16; Pulse Ox 100% on R/A; pf1 23:02 BP 144 / 98; Pulse 94; Resp 17; Pulse Ox 100% on R/A; rv 07/13 00:30 BP 120 / 78; Pulse 90; Resp 19; Temp 98; Pulse Ox 100% on R/A; Pain 2/10; pf1 07/12 21:43 Body Mass Index 36.02 (104.33 kg, 170.18 cm) jb4 21:43 Pain Scale: Adult jb4 07/13 00:30 Pain Scale: Adult pf1 [place] Coma Score: 07/12 22:53 Eye Response: spontaneous(4). Motor Response: obeys commands(6). Verbal Response: rv oriented(5). Total: 15. MDM: 21:09 Patient medically screened. edwige 22:25 Differential diagnosis: hypertensive crisis, Malignant HTN, CVA, intracerebral edwige hemorrhage. Data reviewed: vital signs, nurses notes, lab test result(s), EKG, radiologic studies, CT scan, plain films. Consideration of Admission/Observation Escalation of care including admission/observation considered. I considered the following discharge prescriptions or medication management in the emergency department Medications were administered in the Emergency Department. See MAR. Independent interpretation of the following test(s) in the Emergency Department EKG: See my EKG interpretation above. Test considered but Not performed: Ultrasound 2 d echo. Historians other than the Patient: patient well informed. Care significantly affected by the following chronic conditions: Hypertension, Obesity. 07/12 21:10 Order name: Basic Metabolic Panel; Complete Time: 22:48 07/12 21:10 Order name: CBC with Diff; Complete Time: 22:23 07/12 21:10 Order name: LFT's; Complete Time: 22:48 07/12 21:10 Order name: Magnesium; Complete Time: 22:48 07/12 21:10 Order name: NT PRO-BNP; Complete Time: 22:48 07/12 21:10 Order name: PT-INR; Complete Time: 22:48 07/12 21:10 Order name: Troponin HS; Complete Time: 22:48 07/12 21:10 Order name: Urinalysis w/ reflexes; Complete Time: 22:19 07/12 21:10 Order name: PREGU; Complete Time: 22:23 07/12 21:10 Order name: UDS; Complete Time: 22:48 07/12 22:06 Order name: D-Dimer; Complete Time: 23:35 07/12 21:10 Order name: XRAY Chest (1 view); Complete Time: 22:19 07/12 22:06 Order name: CT Aorta for Dissection 07/12 22:23 Order name: CT Head Brain wo Cont [facility] 07/12 21:10 Order name: EKG; Complete Time: 21:11 07/12 21:10 Order name: Cardiac monitoring; Complete Time: 21:56 07/12 21:10 Order name: EKG - Nurse/Tech; Complete Time: 21:51 07/12 21:10 Order name: IV Saline Lock; Complete Time: 22:55 07/12 21:10 Order name: Labs collected and sent; Complete Time: 22:55 07/12 21:10 Order name: O2 Per Protocol; Complete Time: 21:51 07/12 21:10 Order name: O2 Sat Monitoring; Complete Time: 21:51 edwige EC:43 Rate is 99 beats/min. Rhythm is regular. QRS [place] is Normal. DE interval is normal. QRS edwige interval is normal. QT interval is prolonged at 482 msec. No Q waves. T waves are Normal. No ST changes noted. Clinical impression: NSR w/ Non-specific ST/T Changes. Interpreted by me. Reviewed by me. Administered Medications: 21:50 Drug: Acetaminophen PO 650 mg PO once Route: PO; pf1 22:50 Follow up: Response: No adverse reaction; Marked relief of symptoms; Pain is decreased pf1 22:30 Drug: NS 0.9% IV 1000 ml IV at 1 bolus Per protocol; 1000 mL bolus Route: IV; Rate: 1 pf1 bolus; Site: left antecubital; 23:30 Follow up: Response: No adverse reaction; Marked relief of symptoms; IV Status: pf1 Completed infusion; IV Intake: 1000ml 22:40 Drug: Ketorolac IVP 30 mg IVP once Route: IVP; Site: left antecubital; pf1 23:40 Follow up: Response: No adverse reaction; Marked relief of symptoms; Pain is decreased pf1 22:40 Drug: Ondansetron IVP 4 mg IVP once; over 2 minutes Route: IVP; Site: left antecubital; pf1 23:40 Follow up: Response: No adverse reaction; Marked relief of symptoms; Pain is decreased pf1 22:40 Drug: Ativan IVP 1 mg IVP once Route: IVP; Site: left antecubital; pf1 23:40 Follow up: Response: No adverse reaction; Marked relief of symptoms; RASS: Alert and pf1 Calm (0) 23:56 Drug: ToPROL XL PO 25 mg PO once Route: PO; pf1 07/13 00:50 Follow up: Response: No adverse reaction; Marked relief of symptoms; Blood pressure is pf1 lowered Disposition Summary: 07/14/23 00:09 Discharge Ordered Notes: Location: Home edwige Problem: new edwige Symptoms: have improved edwige Condition: Stable edwige Diagnosis - Essential (primary) hypertension edwige - Chest pain, unspecified edwige - Anxiety disorder, unspecified edwige - Abnormal electrocardiogram [ECG] [EKG] - prolonged QT 376/482 edwige Followup: edwige - With: Nathanael Berry DO - When: 2 - 3 days - Reason: Recheck today's complaints, Continuance of care, Re-evaluation by your physician Followup: edwige - With: Henrry James MD - When: 2 - 3 days - Reason: Recheck today's complaints, Re-evaluation by your physician Discharge Instructions: - Discharge Summary Sheet edwige - Panic Attack edwige - Nonspecific Chest Pain, Adult edwige - Hypertension, Adult edwige - Nonspecific Chest Pain, Adult, [id number] edwige - Hypertension, Adult, [id number]-[id number] edwige - How to Take Your Blood Pressure, [id number] edwige - Panic Attack, [id number] edwige - Aspirin and Your Heart edwige - Managing Your Hypertension edwige Forms: - Medication Reconciliation Form edwige - Thank You Letter edwige - Antibiotic Education edwige - Prescription Opioid Use edwige - Patient Portal Instructions edwige - Leadership Thank You Letter edwige Prescriptions: - Hydroxyzine HCl 25 mg Oral Tablet - take 1 tablet ORAL route every 6 hours As needed; 30 tablet; Refills: 0, edwige Product Selection Permitted - Toprol XL 25 mg Oral Tablet - take 1 tablet ORAL route once daily; 20 tablet; Refills: 0, Product Selection edwige Permitted Signatures: Dispatcher [employer] EDJon Rai MD MD cha Bryson, James, RN RN jb4 Tamiko Frank RN RN pf1 Corrections: (The following items were deleted from the chart) 07/12 21:11 21:11 BASIC METABOLIC PANEL+C.LAB.BRZ ordered. EDMS EDMS 21:11 21:11 CBC+H.LAB.BRZ ordered. EDMS EDMS 21:11 21:11 HEPATIC FUNCTION+C.LAB.BRZ ordered. EDMS EDMS 21:11 21:11 MAGNESIUM+C.LAB.BRZ ordered. EDMS EDMS 21:11 21:11 PROBNP+C.LAB.BRZ ordered. EDMS EDMS 21:11 21:11 PROTIME (+INR)+COAG.LAB.BRZ ordered. EDMS EDMS 21:11 21:11 Troponin High Sensitivity+C.LAB.BRZ ordered. EDMS EDMS 21:11 21:11 Urinalysis+U.LAB.BRZ ordered. EDMS EDMS 21:11 21:11 Test, Urine+UC.LAB.BRZ ordered. EDMS EDMS 21:11 21:11 URINE DRUG SCREEN+UC.LAB.BRZ ordered. EDMS EDMS 21:47 21:46 Allergies: ahesive; jb4 jb4
[2023-07-14 04:27] VITALS: BP 120/78; O2SAT 100
[2023-07-14 04:28] VITALS: TEMP 98
--- NOTE | 2023-07-14 17:07 | RAD REPORT ---
EXAM DESCRIPTION: CT - Head Brain Wo Cont - 07/14/2023 7:01 am CLINICAL HISTORY: HEADACHE COMPARISON: None. TECHNIQUE: CT HEAD WITHOUT IV CONTRAST on 07/13/2023 10:23 PM CDT This exam was performed according to our departmental dose-optimization program, which includes autom ated exposure control, adjustment of the mA and/or kV according to patient size and/or use of iterati ve reconstruction technique. FINDINGS: There is no acute hemorrhage, mass effect or midline shift. Rivera-white differentiation is preserved. There is no hydrocephalus. There is no significant volume loss for age. The calvarium is intact. Orbits and globes are unremarkable. The paranasal sinuses are clear. Mastoid air cells are clear. IMPRESSION: No acute intracranial findings. Electronically signed by: Aubrey Hood MD 07/13/2023 11:49 PM CDT Due to temporary technical issues with the PACS/Fluency reporting system, reports are being signed by the in house radiologists without review as a courtesy to insure prompt reporting. The interpreting radiologist is fully responsible for the content of the report
--- NOTE | 2023-07-14 17:10 | RAD REPORT ---
EXAM DESCRIPTION: CT - Angio Aorta For Dissection - 07/14/2023 7:01 am CLINICAL HISTORY: Female, 28 years old, DISSECTION COMPARISON: None. TECHNIQUE: CT acquisition of the chest, abdomen and pelvis following the administration of IV contra st in angiographic phase. Coronal and sagittal reformatted images provided. Maximal intensity project ion and/or 3D sequences were created by the technologist. This exam was performed according to [facility] mental dose-optimization program which includes automated exposure control, adjustment of the mA and/ or kV according to patient size, and/or use of iterative reconstruction technique. FINDINGS: SUPPORTIVE DEVICES: None. LOWER NECK: Unremarkable. Beam hardening from arms down positioning results in decreased [id number] and limits interpretat ion. VASCULAR: Aorta: No evidence of dissection. Normal caliber. No significant atherosclerosis. Aortic branches: Patent. Pulmonary arteries: No evidence of central embolism. Veins: Limited unremarkable assessment due to contrast bolus timing. CHEST: Mediastinum/mesha: No evident thoracic adenopathy. Unremarkable esophagus. Heart: Normal size. No pericardial thickening or effusion. No coronary artery calcifications. Lungs: No pulmonary consolidation. No suspicious pulmonary nodule. Central airways are clear. Pleural Space: No pleural effusion or pneumothorax. ABDOMEN AND PELVIS: Liver: Normal. Gallbladder and bile ducts: Normal. Pancreas: Normal. Spleen: Normal. Adrenal glands: Normal. Kidneys and ureters: Normal. Bladder: Normal. Reproductive organs: Unremarkable. GI tract: Normal caliber without wall thickening. No evidence of appendicitis. Lymph nodes: No evident adenopathy. Peritoneum: No evidence of ascites, fluid collection, or free air. Abdominal wall: No significant hernia. Vessels: Unremarkable. MUSCULOSKELETAL: No acute osseous abnormality. Multilevel Schmorl's nodes. IMPRESSION: No aortic dissection. No acute finding of the chest, abdomen, or pelvis. Electronically signed by: Aurelio Cat MD 07/13/2023 11:55 PM CDT Due to temporary technical issues with the PACS/Fluency reporting system, reports are being signed by the in house radiologists without review as a courtesy to insure prompt reporting. The interpreting radiologist is fully responsible for the content of the report
--- NOTE | 2023-07-15 13:43 | EKG ---
Test Date: 2023-07-13 Test Time: 20:36:34 Community Aide: BLAINE MEASUREMENT RESULTS: Intervals: Rate: 99 OR: 146 QRSD: 82 QT: 376 QTc: 482 [place]: P: 41 OR: 146 QRS: 44 T: 44 INTERPRETIVE STATEMENTS: Sinus rhythm with premature atrial complexes Prolonged QT Abnormal ECG No previous ECG available for comparison Electronically Signed On 07-15-23 13:37:28 CDT by Henrry James
== END 2023-07-14 01:10 | disposition home or self-care (01) ==
LOC: ER 21:02
DX: I10 Essential (primary) hypertension (principal); R07.9 Chest pain, unspecified; F41.9 Anxiety disorder, unspecified; R94.31 Abnormal electrocardiogram [ECG] [EKG]; Z91.040 Latex allergy status; Z91.048 Other nonmedicinal substance allergy status
CPT/HCPCS: 96361; 93005; 85025; 80048; 36415; 83735; 81025; 85610; 85379; 80076; 81003; 84484; 83880; 80307; 70450; 71275; 74175; 71045; 96375; 96374; 99285; Q9967; J2405; J7030